=== PATIENT | male | born 1975 | race Caucasian/White ===

== ENCOUNTER → 2019-06-27 08:18 | Outpatient (CLI) | payer BC, SELFPAY ==
--- NOTE | 2019-06-27 08:25 | US_ITS ---
PROCEDURE: US THYROID CLINICAL INDICATION: THYROID NODULE Weight loss, fatigue COMPARISON: No exams were available for comparison FINDINGS: Right lobe: 4.6 x 1.4 x 1.8 cm. There is heterogeneous echogenicity. There is a 10 x 8 mm hypoechoic nodule along the mid polar region posteriorly and may represent parathyroid gland. There is an ill-defined hypoechoic area in the lower pole at 8 mm. Left lobe: 4.3 x 1.5 x 1.7 cm. A mixed nodule slightly hyperechoic and isoechoic noted in the upper pole at 1.6 x 1 cm. This is ill-defined and may be due to an area of heterogeneous echogenicity as opposed to a nodule. Isthmus: Unremarkable Additional findings: IMPRESSION: Mildly enlarged thyroid gland with heterogeneous echogenicity. Probable parathyroid gland on the right with heterogeneous echogenicity on the left with questionable 1.6 cm nodule. Consider six-month follow-up to confirm stability Dictated by: Eduin Warner MD 06/27/2019 19:24 Electronically signed by Eduin Warner MD in [place] 06/27/2019 19:24
[2019-06-29 06:27] LABS: Neisseria gonorrhoeae, NAA Negative (Negative)
== END ==
PROVIDERS: PCP Nurse Practitioner Family; Visit Provider Nurse Practitioner Family
DX: M79.89 Other specified soft tissue disorders (principal); Z11.3 Encounter for screening for infections with a predominantly sexual mode of transmission
CPT/HCPCS: 76536; 87491; 87591

== ENCOUNTER → 2022-06-13 10:20 | Outpatient (CLI) | payer OTHER, SELFPAY | PROVIDERS: PCP Internal Medicine Adolescent Medicine; Visit Provider Surgery | DX: Z01.812 Encounter for preprocedural laboratory examination (principal); Z20.822 Contact with and (suspected) exposure to COVID-19; Z12.11 Encounter for screening for malignant neoplasm of colon | CPT/HCPCS: C9803; U0003; U0005 ==

== ENCOUNTER 2022-06-15 09:33 | Day surgery (SDC) | payer OTHER, SELFPAY ==
[2022-06-15] VITALS (11 sets, daily range): BP systolic 105–147; BP diastolic 51–98; PULSE 51–105; RESP 17–18; TEMP 36.5–36.6; O2SAT 94–100; BMI 29.2
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
--- NOTE | 2022-06-15 11:57 | SUR.PHASEII ---
Pt arrived to post op with nasal trumpet and oral airway. Nasal trumpet removed without difficulty.
--- NOTE | 2022-06-15 12:03 | HMH.SCOPE ---
Procedure: Date: 06/15/22 Patient Date of :: 1975 Procedure Performed:: Colonoscopy with polypectomy Indications:: Screening Performing Provider:: Antony Garza MD Referring Provider:: . Sedation:: Monitored anesthesia care Procedure:: After informed consent was obtained the patient was taken to the endoscopy suite. Sedation ensued after the patient was transferred to the left lateral decubitus position. Pulse, blood pressure, and oxygen saturation were monitored throughout the procedure. Digital rectal exam revealed no significant abnormality. The colonoscope was placed in position. The entire colon was evaluated. The colonoscope was carefully removed and the patient was transferred to recovery in stable condition. Please see findings and specimens below for detail. Findings:: Bowel preparation fair to moderate Significant spasticity/tortuosity Severe lack of relaxation Hemorrhoidal cushions Polyps (see specimens) Specimens:: Sessile lobulated polyp at 60 cm (cold snare) Polyp at 55 cm (cold snare) Lobulated polyp at 7 cm (cold snare) Recommendations:: Timing of repeat colonoscopy is pending pathology but likely be between 1-2 years secondary to nature of polyps, spasticity/tortuosity, and severe lack of relaxation. Complications:: No immediate Estimated blood obtained (mL): 1
--- NOTE | 2022-06-15 12:49 | XR_ITS ---
FINAL REPORT CLINICAL HISTORY: coughing, vomiting with anesthesia FINDINGS: SINGLE-VIEW CHEST The heart size is normal. The mediastinum is normal. There is mild bilateral atelectasis or scar. There is no pneumothorax. IMPRESSION: Mild bilateral atelectasis or scar. Reviewed, Interpreted and Dictated by Ashkan De La Torre III, MD Transcribed by Shannan Chaudhari Authenticated and [facility]
--- NOTE | 2022-06-15 13:15 | SUR.PHASEII ---
Pt looking much better, alert and talking. No coughing, lungs sound clear t/o. Denies pain or SOA. Waiting for radiology to read CXR. Brother at bedside.
--- NOTE | 2022-06-15 13:44 | SUR.PHASEII ---
Reviewed CXR results with Saurabh Stokes CRNA. No new orders noted and ok to discharge.
== END 2022-06-15 13:49 | disposition home or self-care (01) ==
PROVIDERS: PCP Internal Medicine Adolescent Medicine; Visit Provider Surgery
PROC: 0DJD8ZZ Inspection of Lower Intestinal Tract, Via Natural or Artificial Opening Endoscopic (ICD-10-PCS; CPT 45385; principal; 2022-06-15 11:30)
DX: Z12.11 Encounter for screening for malignant neoplasm of colon (principal); K63.5 Polyp of colon
CPT/HCPCS: 45385; 71045; J2704

== ENCOUNTER 2024-01-24 07:20 | Day surgery (SDC) | payer OTHER, SELFPAY ==
[2024-01-20 10:15] VITALS: BMI 28.0
[2024-01-24] MEDS: LACTATED RINGERS 1000ML 1,000 ML 25 ML IV (07:39)
[2024-01-24 07:45] VITALS: BP 131/73; PULSE 65; RESP 18; TEMP 36.6; O2SAT 96
--- NOTE | 2024-01-24 08:06 | P.PCN_ITS ---
Procedure: Date: 01/24/24 Patient Date of :: 1975 Procedure Performed:: Colonoscopy Indications:: History of colon polyps Note: In May 2022 colonoscopy was somewhat complicated by spasticity/tortuosi ty and poor relaxation. Bowel preparation was fair to moderate. Hemorrhoidal cushions noted. Adenomatous polyps at 55 cm and at 60 cm were excised. Performing Provider:: Antony Garza MD Referring Provider:: . Sedation:: Monitored anesthesia care Procedure:: After informed consent was obtained the patient was taken to the endoscopy suite. Sedation ensued after the patient was transferred to the left lateral decubitus position. Pulse, blood pressure, and oxygen saturation were monitored throughout the procedure. Digital rectal exam revealed no significant abnormality. The colonoscope was placed in position. The entire colon was evaluated. The colonoscope was carefully removed and the patient was transferred to recovery in stable condition. Please see findings and specimens below for detail. Findings:: Bowel preparation fair to moderate Moderate spasticity/lack of relaxation Moderate tortuosity Specimens:: None Recommendations:: Repeat colonoscopy in 3-5 years due to history of polyps, fair to moderate bowel preparation, spasticity/lack of relaxation, and tortuosity. Complications:: No immediate Estimated blood obtained (mL): 0 Colonoscopy Component Colonoscopy Component Was a colonoscopy performed during today's procedure?: Yes Recommended follow up colonoscopy of at least 10 years?: No If no, follow up colonoscopy recommended in ___ years?: (See above) Reason for not recommending >/= 10 yr follow-up interval?: (See above)
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
[2024-01-24 08:13] VITALS: O2SAT 96
[2024-01-24 08:42] VITALS: BP 145/84; PULSE 85; RESP 18; TEMP 36.3; O2SAT 95
[2024-01-24 08:51] VITALS: BP 122/67; PULSE 81; RESP 18; O2SAT 97
[2024-01-24 08:52] VITALS: BP 140/67; PULSE 87; RESP 18; O2SAT 94
[2024-01-24 09:05] VITALS: BP 114/66; PULSE 80; RESP 18; O2SAT 96
== END 2024-01-24 09:17 | disposition home or self-care (01) ==
PROVIDERS: PCP Family Medicine; Visit Provider Surgery
PROC: 0DJD8ZZ Inspection of Lower Intestinal Tract, Via Natural or Artificial Opening Endoscopic (ICD-10-PCS; CPT 45378; principal; 2024-01-24 08:30)
DX: Z12.11 Encounter for screening for malignant neoplasm of colon (principal); Z86.010 Personal history of colon polyps; K56.2 Volvulus
CPT/HCPCS: 45378; J2704

== ENCOUNTER 2024-07-16 15:23 | Outpatient (CLI) | payer OTHER, SELFPAY ==
--- NOTE | 2024-07-16 15:31 | MR_ITS ---
FINAL REPORT CLINICAL HISTORY: left shoulder injury. PATIENT FELL 3 MONTHS AGO. WEAKNESS IN ARM COMPARISON: None FINDINGS: Multi planar MR imaging of the left shoulder was performed. There is complete disruption and proximal retraction of the distal supraspinatus tendon. Retraction measures approximately 2.5 cm. There is a small amount of abnormal fluid in the subacromial/subdeltoid bursa. The anterior and posterior glenoid siva appear intact. The biceps tendon appears intact. The subscapularis tendon is intact. The acromioclavicular joint appears intact. IMPRESSION: Complete disruption and proximal retraction distal supraspinatus tendon. Reviewed, Interpreted and Dictated by Jose A Nunez MD Transcribed by Wendy Cantu Authenticated and [facility]
== END 2024-07-16 23:59 | disposition home or self-care (01) ==
LOC: RAD 15:25
PROVIDERS: PCP Nurse Practitioner Family; Visit Provider Family Medicine
DX: M25.512 Pain in left shoulder (principal)
CPT/HCPCS: 73221

== ENCOUNTER 2024-07-24 13:56 | Outpatient (CLI) | payer OTHER, SELFPAY ==
--- NOTE | 2024-07-24 14:02 | XR_ITS ---
FINAL REPORT CLINICAL HISTORY: left shoulder pain COMPARISON: None FINDINGS: LEFT SHOULDER Two views demonstrate no acute fracture or dislocation. Mild degenerative changes are noted. The visualized bony structures are well aligned. No soft tissue abnormality is seen. IMPRESSION: Degenerative changes without acute process. Reviewed, Interpreted and Dictated by Ashkan De La Torre III, MD Transcribed by Salima Vargas Authenticated and [facility]
== END 2024-07-24 23:59 | disposition home or self-care (01) ==
LOC: RAD 13:58
PROVIDERS: PCP Family Medicine; Visit Provider Physician Assistant Surgical
DX: M25.512 Pain in left shoulder (principal)
CPT/HCPCS: 73030

== ENCOUNTER 2024-09-14 08:44 | Outpatient (CLI) | payer OTHER, SELFPAY ==
--- NOTE | 2024-09-14 09:18 | ECG_ITS ---
APPROVED REPORT Exam: Resting ECG HR:74 bpm ECG Measurements Heart Rate 74 AXES DC 144 P 46 QRSd 84 QRS -25 QT 377 T -7 QTc 405 Conclusion SINUS RHYTHM BORDERLINE LEFT AXIS DEVIATION [QRS AXIS < -20] BORDERLINE ECG UNCONFIRMED REPORT Electronically signed by : Todd Ypi MD 09/16/2024 11:18:58
[2024-09-14 09:23] VITALS: BMI 27.9
[2024-09-14 09:40] LABS: Basophils # 0.1 K/mm3 (0-0.2); Basophils % 1.1 % (0.1-2.0); Eosinophils # 0.1 K/mm3 (0.0-0.4); Eosinophils % 2.4 % (0.1-12.0); Hematocrit 43.6 % (42.0-52.0); Hemoglobin 15.7 g/dL (14.1-18.0); Lymphocytes # 1.4 K/mm3 (0.7-4.5); Lymphocytes % 26.3 % (10-50); Mean Corpuscular Hemoglobin 31.2 pg (27.0-31.2); Mean Corpuscular Volume 86.6 fl (80-94); Monocytes # 0.4 K/mm3 (0.1-1.0); Monocytes % 7.5 % (1.7-9.3); Neutrophils # 3.4 K/mm3 (1.8-7.8); Neutrophils % 62.7 % (37.0-80.0); Platelet Count 209 K/mm3 (142-424); Red Blood Count 5.03 M/mm3 (4.60-6.20); Red Cell Distribution Width 13.3 % (11.5-17.5); White Blood Count 5.5 K/mm3 (4.8-10.8)
[2024-09-14 09:45] LABS: Anion Gap 11.9 mEq/L (5-15); Blood Urea Nitrogen 9 mg/dl (9-20); Calcium 9.3 mg/dl (8.4-10.2); Carbon Dioxide 27 mmol/L (22.0-30.0); Chloride 104 mmol/L (98-107); Creatinine Clearance Estimated 123 mL/min (50-200); Estimated Glomerular Filt Rate 89 ml/min (>60); GFR (African American) 108 ML/MIN (>60); Glucose 95 mg/dl (74-100); Potassium 3.9 mmoL/L (3.5-5.1); Sodium 139 mmol/L (136-145)
== END 2024-09-14 23:59 | disposition home or self-care (01) ==
LOC: PREOP 08:45
PROVIDERS: Nurse Anesthetist, Certified Registered; PCP Family Medicine; Visit Provider Orthopaedic Surgery
DX: Z01.810 Encounter for preprocedural cardiovascular examination (principal); R94.31 Abnormal electrocardiogram [ECG] [EKG]
CPT/HCPCS: 80048; 85025; 93005

== ENCOUNTER 2024-09-17 06:06 | Day surgery (SDC) | payer OTHER, SELFPAY ==
[2024-09-14 09:06] VITALS: BMI 27.9
[2024-09-17] VITALS (10 sets, daily range): BP systolic 120–146; BP diastolic 73–92; PULSE 16–86; RESP 16–84; TEMP 36.2–36.6; O2SAT 94–98
[2024-09-17] MEDS: LACTATED RINGERS 1000ML 1,000 ML 100 ML IV (06:54)
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
--- NOTE | 2024-09-17 07:40 | SUR.PREOP ---
a new 20 gauge IV was placed in the right AC in pre op prior to patient being brought to the OR. IV was placed by ariane isaacs
[2024-09-17] MEDS: CLINDAMYCIN PHOSPHATE/D5W 900 MG/50 ML PIGGYBACK 100 MG IV (07:44)
[2024-09-17] MEDS: EPINEPHrine 1 MG/ML AMPUL 2 MG (08:21)
[2024-09-17] MEDS: RINGERS SOLUTION,LACTATED 6,000 ML 25 ML IR (08:21)
--- NOTE | 2024-09-17 09:06 | P.OP_ITS ---
Date of procedure: 09/17/24 Pre-op Diagnosis:: Left shoulder full-thickness rotator cuff tear Post-op Diagnosis:: Same Procedure performed:: Left shoulder arthroscopy with rotator cuff repair Surgeon:: Stalin Guaman DO Assistant Golf Coach(s):: Duncan JARA RECONCILIATION ANALYST:: Siddhartha Moyer Anesthesia: GETA and regional Estimated blood loss (mL): 0 Operative findings:: Full-thickness rotator cuff tear Operative note:: Patient identified preoperatively. Left shoulder marked with yes my initials. Underwent a block with anesthesia. Then transferred to operating room. Placed upon operating bed. General anesthesia was administered and airway was secured. Patient was then placed in a lateral position with a beanbag and all bony prominences well-padded. Left upper extremity was then prepped and draped within the arm martinez. Once prepped and draped final operative timeout performed to identify proper patient procedure and extremity. Everyone involved in the case agreed. There were no counter indications to beginning. He did receive preoperative antibiotics with clindamycin. Marking pen was used to sacha the bony landmarks of the shoulder and standard portal sites. Skin knife is used to incise posterior viewing portal and blunt with trocar was placed in the glenohumeral joint. Within the glenohumeral joint and moved directly anteriorly just above the subscapularis tendon where the anterior working portal was made. This was switched with a purple cannula. The glenohumeral joint was then evaluated. The cartilage was intact. There was some mild fraying of the midportion of the anterior labrum but no patti tear. Also evidence of a [place] complex with a sublabial recess but no gross tearing of the labral tissue. Biceps tendon seen and intact. There was evidence of full-thickness rotator cuff tear evident from the glenohumeral joint. Attention was then brought into the subacromial space. The portals were switched into the subacromial space then a lateral working portal was utilized followed by passport cannula. I debrided the edge of the rotator cuff to get bleeding healthy tissue. Debrided the footprint of the rotator cuff as well. And then subsequently began repair with 2 speed fix anchors passing fiber tape through the rotator cuff and a speed fix swivel lock anchor. This was repeated for a second anchor. And gave good repair of the rotator cuff back to the footprint. Drive-through the shoulder showed no significant downsloping acromion and no significant subacromial bursitis. Camera was removed. Joint was drained. Skin closed with nylon stitch. Sterile dressing placed patient placed in pillow and sling taken recovery in stable condition. Condition: stable Disposition: PACU Complications:: None apparent
--- NOTE | 2024-09-17 09:25 | EXP.ANES.I ---
[facility] Anesthesia Record Part I Anesthesia Record I Intake, IV Amount: 900 Hydration: Adequate Estimated blood loss (mL): 0 Urine output (mL): 0 Blood Products used (#): none Blood Pressure: 120/86 SaO2: 95 Pulse Rate: 86 Airway Patency: Patent Respiratory Rate: 22 Temperature: 97.2 F Patient is:: Drowsy and Stable Stable to PACU at:: 09:16
--- NOTE | 2024-09-17 15:20 | EXP.ANES.II ---
[facility] Anesthesia Record Part II Anesthesia Record Part II Discharge Time: 09:46 Destination: Surgical Day Care (OP Surgery) PACU nurse assessment reviewed?: Yes Patient Condition:: Good Anesthesia Complications:: None Swallowing reflex intact?: Yes Airway Patency: Patent Cyanosis?: No Blood Pressure: 145/73 SaO2: 97 Respiratory Rate: 84 Pulse Rate: 16 Temperature: 97.5 F Mental Status: Alert & Oriented Pain level:: 0 Nausea and/or vomitting:: None Intake, IV Amount: 0 Hydration: Adequate
== END 2024-09-17 10:30 | disposition home or self-care (01) ==
PROVIDERS: PCP Family Medicine; Visit Provider Orthopaedic Surgery
PROC: (CPT 29805; principal; 2024-09-17 07:30)
DX: M75.122 Complete rotator cuff tear or rupture of left shoulder, not specified as traumatic (principal)
CPT/HCPCS: 29827; 96374; J3490; C1713; C9144; C9290; J0171; J0736; J1100; J2250; J2405; J3010; J7120

== ENCOUNTER 2024-11-12 14:09 | Outpatient (CLI) | payer OTHER, SELFPAY ==
[2024-11-12 16:17] LABS: Basophils # 0.1 K/mm3 (0-0.2); Basophils % 0.9 % (0.1-2.0); Eosinophils # 0.3 K/mm3 (0.0-0.4); Eosinophils % 3.6 % (0.1-12.0); Hematocrit 45.2 % (42.0-52.0); Hemoglobin 15.6 g/dL (14.1-18.0); Lymphocytes # 1.7 K/mm3 (0.7-4.5); Lymphocytes % 23.8 % (10-50); Mean Corpuscular HGB Conc 34.5 g/dL (31.8-35.4); Mean Corpuscular Hemoglobin 29.5 pg (27.0-31.2); Mean Corpuscular Volume 85.6 fl (80-94); Mean Platelet Volume 10.5 fl (7.4-10.4); Monocytes # 0.7 K/mm3 (0.1-1.0); Monocytes % 10.3 % (1.7-9.3); Neutrophils # 4.3 K/mm3 (1.8-7.8); Neutrophils % 61.1 % (37.0-80.0); Platelet Count 215 K/mm3 (142-424); Red Blood Count 5.28 M/mm3 (4.60-6.20); Red Cell Distribution Width 12.7 % (11.5-17.5)
[2024-11-12 17:15] LABS: Hemoglobin A1C 5.6 % (4.0-6.0)
[2024-11-12 17:41] LABS: Albumin Level 4.7 g/dl (3.5-5.0); Chloride 101 mmol/L (98-107); Sodium 138 mmol/L (136-145)
[2024-11-12 17:44] LABS: Alanine Aminotransferase 33 U/L (12-78); Alkaline Phosphatase 78 U/L (38-126); Aspartate Amino Transferase 34 U/L (17-59); Bilirubin,Total 1.4 mg/dl (0.2-1.3); Blood Urea Nitrogen 9 mg/dl (9-20); Calcium 9.5 mg/dl (8.4-10.2); Carbon Dioxide 24 mmol/L (22.0-30.0); Cholesterol 163 mg/dl (140-200); Estimated Glomerular Filt Rate 102 ml/min (>60); GFR (African American) 124 ML/MIN (>60); Globulin 2.3 g/dL (1.3-3.2); Glucose 96 mg/dl (74-100); Triglycerides 161 mg/dl (30-150); VLDL Cholesterol 32 mg/dL (0-40)
[2024-11-12 17:45] LABS: Chol/HDL Ratio 4.8 (1-3.5); HDL Cholesterol 34 mg/dl (40-60)
[2024-11-12 17:55] LABS: Direct LDL Cholesterol 109.45 mg/dL (100-129)
[2024-11-12 18:17] LABS: Thyroid Stimulating Hormone 2.53 uIU/mL (0.465-4.68)
[2024-11-12 18:25] LABS: HIV Combo NEGATIVE (Negative)
[2024-11-12 18:35] LABS: Hepatitis C Ab Qual. W/ RFX NEGATIVE (Negative)
[2024-11-12 20:52] LABS: 25-OH Vitamin D, Total 26.2 ng/mL (30-100)
[2024-11-13 14:16] LABS: Testosterone,Total 560 ng/dL (264-916)
== END 2024-11-12 23:59 | disposition home or self-care (01) ==
LOC: LAB.DROPOF 11-13 09:08
PROVIDERS: PCP Nurse Practitioner Family; Visit Provider Nurse Practitioner Family
DX: N52.9 Male erectile dysfunction, unspecified (principal); F41.9 Anxiety disorder, unspecified; F32.A Depression, unspecified; R53.83 Other fatigue; R35.89 Other polyuria; Z11.59 Encounter for screening for other viral diseases; Z11.4 Encounter for screening for human immunodeficiency virus [HIV]
CPT/HCPCS: 80053; 80061; 82306; 83036; 84403; 84443; 85025; 86803; 87389

== ENCOUNTER 2024-11-14 10:00 | Outpatient (RCR) | payer OTHER, SELFPAY ==
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
== END 2024-11-14 23:59 | disposition home or self-care (01) ==
LOC: PT 10:00
PROVIDERS: Visit Provider Orthopaedic Surgery
DX: M75.122 Complete rotator cuff tear or rupture of left shoulder, not specified as traumatic (principal)
CPT/HCPCS: 97110; 97140; 97163; 97530

== ENCOUNTER 2024-12-12 17:00 | Outpatient (RCR) | payer OTHER, SELFPAY | END 2024-12-12 23:59 | disposition home or self-care (01) | LOC: PT 17:00 | PROVIDERS: PCP Nurse Practitioner Family; Visit Provider Orthopaedic Surgery | DX: M75.122 Complete rotator cuff tear or rupture of left shoulder, not specified as traumatic (principal) | CPT/HCPCS: 97110; 97164; 97530 ==

== ENCOUNTER 2024-12-19 16:55 | Outpatient (RCR) | payer OTHER, SELFPAY | END 2024-12-25 14:54 | disposition home or self-care (01) | LOC: PT.CARL 16:55 | PROVIDERS: PCP Nurse Practitioner Family; Visit Provider Orthopaedic Surgery | DX: M75.122 Complete rotator cuff tear or rupture of left shoulder, not specified as traumatic (principal) | CPT/HCPCS: 97110 ==